=== PATIENT | male | born 1955 | race Hispanic/Latino ===

== ENCOUNTER → 2021-01-01 | Outpatient (CLI) | payer OTHER ==
[~2021-01-01] MED LIST: IOHEXOL 350 MG/ML 100ML INFUS..BTL IV ONE
== END | disposition home or self-care (01) ==
LOC: RAH 07:54
PROVIDERS: ATTEND Internal Medicine Gastroenterology
DX: Q53.20 Undescended testicle, unspecified, bilateral (principal); R63.4 Abnormal weight loss
CPT/HCPCS: 74178; Q9967

== ENCOUNTER 2022-06-19 20:07 | Emergency (ER) | payer OTHER ==
[~2022-06-19] VITALS: Ht 170.2 cm; Wt 71.2 kg
[2022-06-19 20:58] LABS: BASOPHILS % (AUTO) 0.3 % (0.0-5.0); EOSINOPHILS % (AUTO) 0.3 % (0.0-8.0); LYMPHOCYTES % (AUTO) 11.1 % (21.0-51.0); MEAN CORPUSCULAR HEMOGLOBIN 28.6 pg (27.0-33.0); MEAN CORPUSCULAR HGB CONC 34.2 g/dL (32.0-36.0); MEAN CORPUSCULAR VOLUME 83.5 fL (79-99); MONOCYTES % (AUTO) 6.1 % (3.0-13.0); NEUTROPHILS % (AUTO) 81.8 % (40.0-77.0); PLATELET COUNT (AUTO) 151 K/uL (130-400); RED BLOOD CELL COUNT(AUTO) 3.95 MIL/uL (4.50-6.20); RED CELL DISTRIBUTION WIDTH 12.1 % (11.0-15.5); WHITE BLOOD COUNT (AUTO) 7.5 K/uL (4.8-10.8)
[2022-06-19 21:03] LABS: APPEARANCE,URINE CLEAR (CLEAR); BILIRUBIN,URINE NEGATIVE (NEGATIVE); COLOR,URINE YELLOW (YELLOW); GLUCOSE, URINE (UA) NEGATIVE (NEGATIVE); KETONES,URINE NEGATIVE (NEGATIVE); LEUKOCYTE ESTERASE ,URINE NEGATIVE Leu/uL (NEGATIVE); NITRATE,URINE NEGATIVE (NEGATIVE); OCCULT BLOOD,URINE NEGATIVE (NEGATIVE); PH,URINE 5.5 (5.0-8.0); PROTEIN,URINE 10 mg/dL (NEGATIVE); UROBILINOGEN,URINE 0.2 mg/dL (0.2-1.0)
[2022-06-19 21:07] LABS: MUCUS,URINE RARE LPF (None Seen); RBC,URINE 0-1 /HPF (0-1); SQUAMOUS EPITHELIAL CELL,UR RARE /HPF (0-2); WBC,URINE 0-1 /HPF (0-1)
[2022-06-19 21:16] LABS: CREATININE 0.8 mg/dL (0.5-1.5); POTASSIUM 3.7 mmol/L (3.5-5.1)
[2022-06-19 21:21] LABS: ALBUMIN 4.3 g/dL (3.5-5.0); TOTAL PROTEIN, SERUM 7.8 g/dL (6.0-8.3)
[2022-06-19] MEDS ORDERED: IOHEXOL 350 MG/ML 100ML INFUS..BTL IV ONE (22:30)
[2022-06-20] MEDS ORDERED: HYDR25SU38 RC (01:05)
[2022-06-20 01:06] VITALS: BP 123/45
== END 2022-06-20 01:38 | disposition home or self-care (01) ==
LOC: EDH 20:07
DX: K64.9 Unspecified hemorrhoids (principal); F03.90 Unspecified dementia, unspecified severity, without behavioral disturbance, psychotic disturbance, mood disturbance, and anxiety
CPT/HCPCS: 99285; 74177; 82270; 82150; 82550; 80053; 83690; 85025; 81001; 36415; Q9967

== ENCOUNTER 2022-10-08 07:34 | Emergency (ER) | payer OTHER ==
[~2022-10-08] VITALS: Ht 170.2 cm; Wt 69.9 kg
[~2022-10-08 07:34] MED LIST changes: +HYDR25SU38 RC; -IOHEXOL 350 MG/ML 100ML INFUS..BTL IV ONE
[2022-10-08 08:30] LABS: BASOPHILS % (AUTO) 0.8 % (0.0-5.0); EOSINOPHILS % (AUTO) 2.1 % (0.0-8.0); HEMATOCRIT 34.6 % (42-54); LYMPHOCYTES % (AUTO) 36.1 % (21.0-51.0); MEAN CORPUSCULAR HEMOGLOBIN 28.8 pg (27.0-33.0); MEAN CORPUSCULAR HGB CONC 33.5 g/dL (32.0-36.0); MEAN CORPUSCULAR VOLUME 85.9 fL (79-99); MONOCYTES % (AUTO) 6.3 % (3.0-13.0); NEUTROPHILS % (AUTO) 54.2 % (40.0-77.0); NUCLEATED RED BLOOD CELLS 0.5 % (0.0-0.19); PLATELET COUNT (AUTO) 82 K/uL (130-400); RED BLOOD CELL COUNT(AUTO) 4.03 MIL/uL (4.50-6.20); RED CELL DISTRIBUTION WIDTH 12.1 % (11.0-15.5); WHITE BLOOD COUNT (AUTO) 3.8 K/uL (4.8-10.8)
[2022-10-08 08:45] LABS: APPEARANCE,URINE CLEAR (CLEAR); BILIRUBIN,URINE NEGATIVE (NEGATIVE); COLOR,URINE YELLOW (YELLOW); GLUCOSE, URINE (UA) NEGATIVE (NEGATIVE); KETONES,URINE NEGATIVE (NEGATIVE); LEUKOCYTE ESTERASE ,URINE NEGATIVE Leu/uL (NEGATIVE); NITRATE,URINE NEGATIVE (NEGATIVE); OCCULT BLOOD,URINE NEGATIVE (NEGATIVE); PROTEIN,URINE NEGATIVE (NEGATIVE); UROBILINOGEN,URINE 0.2 mg/dL (0.2-1.0)
[2022-10-08 09:05] LABS: ALBUMIN 4.5 g/dL (3.5-5.0); CREATININE 0.7 mg/dL (0.5-1.5); MAGNESIUM 1.9 mg/dL (1.80-2.40); POTASSIUM 3.9 mmol/L (3.5-5.1); TOTAL PROTEIN, SERUM 7.8 g/dL (6.0-8.3)
[2022-10-08] MEDS ORDERED: IOHEXOL 350 MG/ML 100ML INFUS..BTL IV ONE (10:18)
[2022-10-08 12:20] VITALS: BP 130/64
== END 2022-10-08 12:31 | disposition home or self-care (01) ==
LOC: EDH 07:36
DX: R41.0 Disorientation, unspecified (principal); R63.4 Abnormal weight loss
CPT/HCPCS: 99285; 70460; 83735; 80053; 85025; 81003; 36415; Q9967

== ENCOUNTER 2023-12-12 11:12 | Emergency (ER) | payer OTHER ==
[~2023-12-12] VITALS: Ht 170.2 cm; Wt 65.8 kg
[2023-12-12 11:35] VITALS: BP 119/65; PULSE 60; RESP 16
[2023-12-12 11:48] LABS: HEMATOCRIT 34.7 % (42-54); MEAN CORPUSCULAR HGB CONC 34.9 g/dL (32.0-36.0); MEAN CORPUSCULAR VOLUME 85.9 fL (79-99); PLATELET COUNT (AUTO) 150 K/uL (130-400); RED BLOOD CELL COUNT(AUTO) 4.04 MIL/uL (4.50-6.20); RED CELL DISTRIBUTION WIDTH 11.8 % (11.0-15.5); WHITE BLOOD COUNT (AUTO) 5.7 K/uL (4.8-10.8)
[2023-12-12 11:53] LABS: BASOPHILS # (AUTO) 0.02 K/uL (0.00-0.20); BASOPHILS % (AUTO) 0.4 % (0.0-5.0); EOSINOPHILS # (AUTO) 0.06 K/uL (0.00-0.70); EOSINOPHILS % (AUTO) 1.1 % (0.0-8.0); IMMATURE GRANULOCYTE ABSOLUTE 0.02 K/uL (0-1); LYMPHOCYTES # (AUTO) 1.6 K/uL (1.0-4.8); LYMPHOCYTES % (AUTO) 28.4 % (21.0-51.0); MONOCYTES # (AUTO) 0.3 K/uL (0.1-1.0); NEUTROPHILS # (AUTO) 3.5 K/uL (1.8-7.7); NEUTROPHILS % (AUTO) 63.7 % (40.0-77.0)
[2023-12-12 12:02] LABS: CREATININE 0.8 mg/dL (0.5-1.3); POTASSIUM 3.7 mmol/L (3.5-5.1)
[2023-12-12 12:05] LABS: APPEARANCE,URINE CLEAR (CLEAR); BILIRUBIN,URINE NEGATIVE (NEGATIVE); COLOR,URINE YELLOW (YELLOW); GLUCOSE, URINE (UA) NEGATIVE (NEGATIVE); KETONES,URINE NEGATIVE (NEGATIVE); LEUKOCYTE ESTERASE ,URINE NEGATIVE Leu/uL (NEGATIVE); NITRATE,URINE NEGATIVE (NEGATIVE); OCCULT BLOOD,URINE NEGATIVE (NEGATIVE); PH,URINE 5.5 (5.0-8.0); PROTEIN,URINE NEGATIVE (NEGATIVE); UROBILINOGEN,URINE 0.2 mg/dL (0.2-1.0)
[2023-12-12 12:09] LABS: ADD UA MICROSCOPIC NO
[2023-12-12 12:12] LABS: ALBUMIN 4.1 g/dL (3.5-5.0); BILIRUBIN,TOTAL 1.6 mg/dL (0.2-1.0); TOTAL PROTEIN, SERUM 7.4 g/dL (6.0-8.3)
== END 2023-12-12 12:53 | disposition home or self-care (01) ==
LOC: EDH 11:12
DX: D64.9 Anemia, unspecified (principal); R30.0 Dysuria; F03.90 Unspecified dementia, unspecified severity, without behavioral disturbance, psychotic disturbance, mood disturbance, and anxiety; Z98.890 Other specified postprocedural states
CPT/HCPCS: 36415; 80053; 81003; 85025

== ENCOUNTER 2024-11-14 12:57 | Observation (INO) | payer OTHER ==
[~2024-11-14] VITALS: Ht 170.2 cm; Wt 66.7 kg
--- NOTE | 2024-11-14 13:27 | ERN ---
ED Note History of Present Illness Stated Complaint: URINE INFECTION Chief Complaint: Abnormal Labs Time Seen by MD: 12:58 Dictation: 69-year-old male with a history of dementia presents to the ED with machine tool technician instructor for evaluation of urine infection. Credit Card Clerk reports foul smelling urine, but denies any fever, chest pain, shortness of breath or vomiting at this time. Allergies: Coded Allergies: No Known Drug Allergies (Unverified Allergy, Unknown, 06/19/22) Home Meds Active Scripts Hydrocortisone Acetate (Anusol-Hc) 25 Mg Supp.rect, 25 MG RC BID, #10 EA Prov:NANCIE INFANTE MD 06/20/22 Past Medical History Past Medical History: Dementia, Other Additional Past Medical Hx: LEFT BRAIN MASS FROM . Surgical History: None Family History: Negative Social History: Negative, Lives with family Review of System Dictation ROS obtained from machine tool technician instructor Constitutional: Negative for fever,chills, and weight loss Eyes: Negative for injury, pain,redness, and discharge ENT: Negative for injury,pain or swelling Cardiovascular: Negative for chest pain, palpitations, and edema Respiratory: Negative for shortness of breath, cough, and wheezing, Abdomen/GI: Negative for abdominal pain, nausea, vomiting, diarrhea, and constipation Back: Negative for injury and pain : Negative for injury, bleeding and discharge MS/Extremity: Negative for injury and deformity Skin: Negative for rash, and discoloration Initial Vital Sign VS Vital Signs Date Time Temp Pulse Resp B/P (MAP) Pulse Ox O2 Delivery O2 Flow Rate FiO2 11/14/24 13:29 98.4 70 18 116/59 98 Room Air 0 Physical Exam Dictation General: awake, alert, NAD Head/Face: Normocephalic, atraumatic Eyes: PERRL, EOMI, vision at baseline ENT: oral cavity clear, TMs clear, no signs of infection Neck: Trachea midline, supple, no nuchal rigidity Cardiovascular: RRR, normal S1/S2, No MRGs, no JVD Respiratory: CTAB, no respiratory distress, No rales or wheezes Abdomen: Soft, non-tender, non-distended, normal bowel sounds, no guarding or rebound. Skin: Warm, dry, normal turgor, no rash MS/Extremity: Pulses equal, no cyanosis, neurovascular intact, FROM Results (Laboratory/Radiology) Laboratory/Radiology Laboratory Tests Test 4/21/25 14:38 White Blood Count 8.8 K/uL (4.8-10.8) Red Blood Count 4.02 MIL/uL (4.50-6.20) L Hemoglobin 11.9 g/dL (14.0-18.0) L Hematocrit 35.6 % (42-54) L Mean Corpuscular Volume 88.6 fL (79-99) Mean Corpuscular Hemoglobin 29.6 pg (27.0-33.0) Mean Corpuscular Hemoglobin Concent 33.4 g/dL (32.0-36.0) Red Cell Distribution Width 12.1 % (11.0-15.5) Platelet Count 143 K/uL (130-400) Mean Platelet Volume 10.1 fL (7.5-10.5) Immature Granulocyte % (Auto) 0.3 % (0-1) Neutrophils (%) (Auto) 89.6 % (40.0-77.0) H Lymphocytes (%) (Auto) 5.7 % (21.0-51.0) L Monocytes (%) (Auto) 4.1 % (3.0-13.0) Eosinophils (%) (Auto) 0.1 % (0.0-8.0) Basophils (%) (Auto) 0.2 % (0.0-5.0) Neutrophils # (Auto) 7.9 K/uL (1.8-7.7) H Lymphocytes # (Auto) 0.5 K/uL (1.0-4.8) L Monocytes # (Auto) 0.4 K/uL (0.1-1.0) Eosinophils # (Auto) 0.01 K/uL (0.00-0.70) Basophils # (Auto) 0.02 K/uL (0.00-0.20) Absolute Immature Granulocyte (auto 0.03 K/uL (0-1) Nucleated Red Blood Cells 0.0 % (0.0-0.19) White Cell Morphology Comment See comments Sodium Level 140 mmol/L (136-145) Potassium Level 4.1 mmol/L (3.5-5.1) Chloride Level 103 mmol/L (101-111) Carbon Dioxide Level 29 mmol/L (21-32) Blood Urea Nitrogen 19 mg/dL (7-18) H Creatinine 0.7 mg/dL (0.5-1.3) Glomerular Filtration Rate Calc 99 mL/min (>90) Random Glucose 116 mg/dL (70-105) H Lactic Acid Level 1.1 mmol/L (0.8-2.5) Total Calcium 9.1 mg/dL (8.5-10.1) Total Bilirubin 1.0 mg/dL (0.2-1.0) Direct Bilirubin 0.2 mg/dL (0.0-0.3) Aspartate Amino Transf (AST/SGOT) 22 U/L (10-37) Alanine Aminotransferase (ALT/SGPT) 27 U/L (12-78) Alkaline Phosphatase 95 U/L (50-136) Troponin I High Sensitivity 4 ng/L (4-75) Total Protein 7.8 g/dL (6.0-8.3) Albumin 4.3 g/dL (3.5-5.0) Labs Reviewed?: Yes ED Course ED Course Orders Procedure Category Date Status Time 12 Lead Ekg Tracing- EKG 11/14/24 Logged Technical 13:11 Basic Metabolic Panel LAB 11/14/24 Complete 13:11 Blood Cult CANDI 11/14/24 In Process 13:11 Cbc With Differential LAB 11/14/24 Complete 13:11 Hepatic Function Panel LAB 11/14/24 Complete 13:11 Lactic Acid LAB 11/14/24 Complete 13:11 Troponin I High LAB 11/14/24 Complete Sensitivity 13:11 Urinalysis Profile LAB 11/14/24 Logged 13:11 Ceftriaxone 2gm Vial PHA 11/14/24 In Process (Rocephin 2gm Inj) 18:30 0.9%Nacl 1000ml (Ns PHA 11/14/24 In Process 1000ml) 18:30 Current Medications Medications (Trade) Dose Ordered Sig/Seven Route PRN Reason Start Time Stop Time Status Last Admin Dose Admin Ceftriaxone Sodium (Rocephin 2gm Inj) 2 gm ONCE IVPB 11/14/24 18:30 11/14/24 22:30 Sodium Chloride 1,000 ml @ 0 mls/hr ONCE IV 11/14/24 18:30 11/15/24 18:30 Vital Signs Date Time Temp Pulse Resp B/P (MAP) Pulse Ox O2 Delivery O2 Flow Rate FiO2 11/14/24 13:29 98.4 70 18 116/59 98 Room Air 0 Medical Decision Making MDM MDM: Differential diagnosis: UTI 1899- Patient care is being transferred at shift change Risk of complication and/or morbidity or mortality of patient management: None Medications-Per medication reconciliation Need for hospitalization: Patient does not meet criteria for hospitalization. Need for emergency major/minor surgery: No There are no social concerns with this patient. I independently interpreted the test that were performed, results were reviewed by me and considered findings on radiology if ordered. Medical management and examination interpretation discussions were had by me with other qualified healthcare professionals as indicated for the patient's care. DX & DISP Disposition: Inpatient Departure Impression: Primary Impression: Dysuria Additional Impressions: Confusion and disorientation, Acute UTI Condition: Stable Referrals: STEFF MINOR DO (PCP) RUI MELO MD Nov 14, 2024 13:27
[2024-11-14 14:50] LABS: BASOPHILS # (AUTO) 0.02 K/uL (0.00-0.20); BASOPHILS % (AUTO) 0.2 % (0.0-5.0); EOSINOPHILS # (AUTO) 0.01 K/uL (0.00-0.70); EOSINOPHILS % (AUTO) 0.1 % (0.0-8.0); HEMATOCRIT 35.6 % (42-54); IMMATURE GRANULOCYTE ABSOLUTE 0.03 K/uL (0-1); LYMPHOCYTES # (AUTO) 0.5 K/uL (1.0-4.8); LYMPHOCYTES % (AUTO) 5.7 % (21.0-51.0); MEAN CORPUSCULAR HEMOGLOBIN 29.6 pg (27.0-33.0); MEAN CORPUSCULAR HGB CONC 33.4 g/dL (32.0-36.0); MEAN CORPUSCULAR VOLUME 88.6 fL (79-99); MONOCYTES # (AUTO) 0.4 K/uL (0.1-1.0); MONOCYTES % (AUTO) 4.1 % (3.0-13.0); NEUTROPHILS # (AUTO) 7.9 K/uL (1.8-7.7); NEUTROPHILS % (AUTO) 89.6 % (40.0-77.0); PLATELET COUNT (AUTO) 143 K/uL (130-400); RED BLOOD CELL COUNT(AUTO) 4.02 MIL/uL (4.50-6.20); RED CELL DISTRIBUTION WIDTH 12.1 % (11.0-15.5); WHITE BLOOD COUNT (AUTO) 8.8 K/uL (4.8-10.8)
[2024-11-14 15:01] LABS: CREATININE 0.7 mg/dL (0.5-1.3); POTASSIUM 4.1 mmol/L (3.5-5.1)
[2024-11-14 15:05] LABS: ALBUMIN 4.3 g/dL (3.5-5.0); BILIRUBIN,DIRECT 0.2 mg/dL (0.0-0.3); TOTAL PROTEIN, SERUM 7.8 g/dL (6.0-8.3)
[2024-11-14] MEDS: 0.9%NACL 1000ML 1,000 ML IV SCH (19:44)
[2024-11-14] MEDS: CEFTRIAXONE 2GM VIAL IVPB SCH (19:44)
--- NOTE | 2024-11-14 23:06 | NUR ---
REPORTS PATIENT DOES NOT TAKE ANY PRESCRIBED MEDICATIONS
[2024-11-14] MEDS: MELATONIN 5 MG TABLET PO ONE (23:25)
--- NOTE | 2024-11-14 23:35 | HP ---
[facility] HISTORY AND PHYSICAL Date of Service: Nov 14, 2024 Time of Service: 23:35 PCP: Salvatore Bland HISTORY OF PRESENT ILLNESS: This is a 69-year-old male with history of dementia who presents to the ED for complaints of foul odor urine and decided to bring the patient to the ED for evaluation. Seen and examined patient in the ER awake ,alert and responsive.Patient appears comfortable. No reported fever, chills, chest pain, cough , palpitation and shortness of breaths. Latest vital signs temperature 9 8.4 heart rate 70 blood pressure 116/59 saturation 98% on room air. Labs: Hemoglobin 11, hematocrit 35 platelet count 143. Chemistries unremarkable. While in the ER patient received Rocephin 2 g IV 1 L NS bolus and melatonin 5 mg p.o. ER called and recommended to admit the patient REVIEW OF SYSTEMS CONSTITUTIONAL: Denies fevers, chills, or night sweats. No unintentional weight loss reported. NEUROLOGICAL: Denies headache, amaurosis fugax, motor weakness, sensory deficit, vertigo/spinning sensation, gait abnormalities, or tremors. ENT: No hearing loss, otalgia, otorrhea, rhinitis, rhinorrhea, hoarseness, or sore throat. CARDIOVASCULAR: Denies any exertional angina, dyspnea on exertion, orthopnea, paroxysmal nocturnal dyspnea, palpitations, life-threatening arrhythmias, claudication. PULMONARY: Denies any shortness of breath, cough, phlegm/sputum, hemoptysis, pleuritic chest pain. SLEEP: Denies morning headaches, daytime somnolence or napping. Denies difficul ty falling asleep, staying asleep, waking from sleep. Denies knowledge of snoring. GASTROINTESTINAL: Denies any type of dysphagia to either liquids or solids. Denies nausea, vomiting, pyrosis, early satiety, abdominal pain, diarrhea, constipation, or changes in stool consistency or caliber. Denies coffee-ground emesis, hematemesis, hematochezia, or melanotic stools. GENITOURINARY: Denies frequency, urgency, nocturia, hematuria or incontinence (Storage/Irritative symptoms.) Low urinary stream, straining to void, urinary intermittency or hesitancy, splitting of the voiding stream, terminal dribbling. ENDOCRINOLOGIC: Denies polyuria, polydipsia, polyphagia or heat/cold intole rances. HEMATOLOGIC: Denies thrombophilia/previous clots, or coagulopathy/bleeding disorders. ONCOLOGIC: Denies personal history of malignancy. DERMATOLOGIC: Denies rashes or pruritus. PSYCHIATRIC: Denies any suicidal or homicidal ideation. Denies hallucinations. PAST MEDICAL HISTORY: [ Dementia] PAST SURGICAL HISTORY: [ Family denies] PAST SOCIAL HISTORY: [ Patient stays with Ludim . Patient does not drink alcohol, smoke cigarette and use recreational drugs as per ] FAMILY HISTORY: [ Noncontributory] Coded Allergies: No Known Drug Allergies (Unverified Allergy, Unknown, 06/19/22) PHYSICAL EXAM GENERAL APPEARANCE: The patient is awake, alert, and oriented, in no acute cardiopulmonary distress. NEUROLOGICAL: Cranial nerves II-XII grossly intact. Motor is 5/5 in bilateral upper and lower extremities proximal to distal. No sensory deficits. HEENT: Face is symmetric. Pupils are equal and reactive. Extraocular movements are intact. NECK: Supple. No JVD. No thyromegaly. No submental, submandibular, pre- /postauricular, occipital or supraclavicular lymphadenopathy. CHEST: Normal chest expansion. No Telemetry. LUNGS: Absence of any rales, rhonchi or any wheezing. CARDIOVASCULAR: Regular. S1 and S2 normal. No appreciable rubs, murmurs or gallops. ABDOMEN: Soft, nontender, and nondistended. There is no rebound, voluntary guarding, or rigidity. : Deferred. No Stevens. EXTREMITIES: Non-edematous and not cyanotic. No clubbing. Good capillary refill. SKIN: No skin breakdown. Vital Sign (Last 24 Hours) 11/14/24 13:29 Temp 98.4 Pulse 70 Resp 18 B/P (MAP) 116/59 Pulse Ox 98 O2 Delivery Room Air O2 Flow Rate 0 LABS: Laboratory: Test 11/14/24 14:38 Range/Units White Blood Count 8.8 4.8-10.8 K/uL Red Blood Count 4.02 L 4.50-6.20 MIL/uL Hemoglobin 11.9 L 14.0-18.0 g/dL Hematocrit 35.6 L 42-54 % Mean Corpuscular Volume 88.6 79-99 fL Mean Corpuscular Hemoglobin 29.6 27.0-33.0 pg Mean Corpuscular Hemoglobin Concent 33.4 32.0-36.0 g/dL Red Cell Distribution Width 12.1 11.0-15.5 % Platelet Count 143 130-400 K/uL Mean Platelet Volume 10.1 7.5-10.5 fL Immature Granulocyte % (Auto) 0.3 0-1 % Neutrophils (%) (Auto) 89.6 H 40.0-77.0 % Lymphocytes (%) (Auto) 5.7 L 21.0-51.0 % Monocytes (%) (Auto) 4.1 3.0-13.0 % Eosinophils (%) (Auto) 0.1 0.0-8.0 % Basophils (%) (Auto) 0.2 0.0-5.0 % Neutrophils # (Auto) 7.9 H 1.8-7.7 K/uL Lymphocytes # (Auto) 0.5 L 1.0-4.8 K/uL Monocytes # (Auto) 0.4 0.1-1.0 K/uL Eosinophils # (Auto) 0.01 0.00-0.70 K/uL Basophils # (Auto) 0.02 0.00-0.20 K/uL Absolute Immature Granulocyte (auto 0.03 0-1 K/uL Nucleated Red Blood Cells 0.0 0.0-0.19 % White Cell Morphology Comment See comments Sodium Level 140 136-145 mmol/L Potassium Level 4.1 3.5-5.1 mmol/L Chloride Level 103 101-111 mmol/L Carbon Dioxide Level 29 21-32 mmol/L Blood Urea Nitrogen 19 H 7-18 mg/dL Creatinine 0.7 0.5-1.3 mg/dL Glomerular Filtration Rate Calc 99 >90 mL/min Random Glucose 116 H 70-105 mg/dL Lactic Acid Level 1.1 0.8-2.5 mmol/L Total Calcium 9.1 8.5-10.1 mg/dL Total Bilirubin 1.0 0.2-1.0 mg/dL Direct Bilirubin 0.2 0.0-0.3 mg/dL Aspartate Amino Transf (AST/SGOT) 22 10-37 U/L Alanine Aminotransferase (ALT/SGPT) 27 12-78 U/L Alkaline Phosphatase 95 50-136 U/L Troponin I High Sensitivity 4 4-75 ng/L Total Protein 7.8 6.0-8.3 g/dL Albumin 4.3 3.5-5.0 g/dL Current Medications Medications (Trade) Dose Ordered Sig/Seven Route PRN Reason Start Time Stop Time Status Last Admin Dose Admin Ceftriaxone Sodium (Rocephin 2gm Inj) 2 gm ONCE IVPB 11/14/24 18:30 11/14/24 22:30 DC 11/14/24 19:44 2 GM Sodium Chloride 1,000 ml @ 0 mls/hr ONCE IV 11/14/24 18:30 11/15/24 18:30 11/14/24 19:44 1,000 MLS/HR DIAGNOSTICS / RADIOLOGY: [ ] ASSESSMENT: Suspected urinary tract infection POA Normocytic normochromic anemia POA Dementia POA PLAN: We will admit patient in medical floor We will start on heart healthy diet We will start on famotidine 20 mg p.o. b.i.d. for GI prophylaxis We will start on Rocephin 1 g IV daily for empiric coverage We will replace electrolytes as needed per protocol We will add prn medication for fever,pain,cough, nausea and vomiting We will reconcile home meds once medlist available Follow up urinalysis and blood culture result We will request labs in am Further orders to follow depending on above results Case discussed with attending physician and came up with above treatment and plan of care. ADVANCED CARE PLANNING 1. Which of the following were discussed? Hospice Care - No Therapeutic options - Yes Advance Directives - No Other discussions - 2. Discussed with who? Patient and Dawn 3. Voluntary nature of this service was explained to the patient? Yes 4. Amount of time spent - __20 5. Reviewed by Physician? (if this service was performed by NPP) Yes Patient seen and examined by me. Agree with note by DIRECTOR OF BROADCAST SEE ADDITIONAL ORDERS PER CHART DISCUSSED WITH NURSING STAFF SURESH HART DIRECTOR OF LABOR AND DELIVERY Nov 14, 2024 23:35
[2024-11-15] VITALS (8 sets, daily range): BP systolic 120–152; BP diastolic 52–82; PULSE 54–79; RESP 16–19; TEMP 97.8–98.2; O2SAT 100
[2024-11-15] MEDS ORDERED: ondanSETRON 4MG INJ IV PRN
[2024-11-15 07:15] LABS: BASOPHILS # (AUTO) 0.03 K/uL (0.00-0.20); BASOPHILS % (AUTO) 0.6 % (0.0-5.0); EOSINOPHILS # (AUTO) 0.11 K/uL (0.00-0.70); EOSINOPHILS % (AUTO) 2.1 % (0.0-8.0); HEMATOCRIT 31.4 % (42-54); IMMATURE GRANULOCYTE ABSOLUTE 0.02 K/uL (0-1); LYMPHOCYTES # (AUTO) 1.1 K/uL (1.0-4.8); LYMPHOCYTES % (AUTO) 21.5 % (21.0-51.0); MEAN CORPUSCULAR HEMOGLOBIN 29.5 pg (27.0-33.0); MEAN CORPUSCULAR HGB CONC 33.8 g/dL (32.0-36.0); MEAN CORPUSCULAR VOLUME 87.5 fL (79-99); MONOCYTES # (AUTO) 0.4 K/uL (0.1-1.0); NEUTROPHILS # (AUTO) 3.6 K/uL (1.8-7.7); NEUTROPHILS % (AUTO) 68.4 % (40.0-77.0); PLATELET COUNT (AUTO) 111 K/uL (130-400); RED BLOOD CELL COUNT(AUTO) 3.59 MIL/uL (4.50-6.20); RED CELL DISTRIBUTION WIDTH 12.1 % (11.0-15.5); WHITE BLOOD COUNT (AUTO) 5.3 K/uL (4.8-10.8)
[2024-11-15 07:28] LABS: ALBUMIN 3.6 g/dL (3.5-5.0); BILIRUBIN,TOTAL 0.9 mg/dL (0.2-1.0); CREATININE 0.6 mg/dL (0.5-1.3); POTASSIUM 4.1 mmol/L (3.5-5.1); TOTAL PROTEIN, SERUM 6.7 g/dL (6.0-8.3)
[2024-11-15] MEDS: FAMOTIDINE 20MG TAB PO SCH (09:39)
--- NOTE | 2024-11-15 11:06 | NUR ---
DCP: home Pt has a diagnosis of dementia and lives with his Debbie Mitchell. Sps assists pt in completing all ADLs. SPS did not report any insecurities with food, correction, and/or utilities. Sps states that she woudl use "all the help" with pt. SPS is already connected with [facility]. SW provided sps with [facility] [phone] for potential assist. Pt does not have DME at home. PCP is Dr. Chase and uses [facility] for RX needs. SPS requested that any RX be in liquid form since it is easier to adminster to pt. At [place] pt will go home and will assist. Addendum: 11/15/24 at 1115 by ALEXANDER HIDALGO SS Amended: Links added.
--- NOTE | 2024-11-15 12:43 | PN ---
[facility] PROGRESS NOTE Date of Service: Nov 15, 2024 Time of Service: 12:39 SUBJECTIVE: [Patient was admitted overnight due to complaining of foul odor urine. Apparently patient has history of dementia, pleasantly confused. During rounds, patient's [id number]-fun is at bedside. We are unable to collect for urine culture hence I recommended to do a straight catheter for which [id number] agreed. So far patient has not had any fevers, WBC within normal limits. Patient is currently on ceftriaxone1 g Q 24 hours. Patient's family denies home medications. For now we will continue with current management. REVIEW OF SYSTEMS CONSTITUTIONAL: Denies fevers, chills, or night sweats. No unintentional weight loss reported. NEUROLOGICAL: Denies headache, amaurosis fugax, motor weakness, sensory deficit, vertigo/spinning sensation, gait abnormalities, or tremors. ENT: No hearing loss, otalgia, otorrhea, rhinitis, rhinorrhea, hoarseness, or sore throat. CARDIOVASCULAR: Denies any exertional angina, dyspnea on exertion, orthopnea, paroxysmal nocturnal dyspnea, palpitations, life-threatening arrhythmias, claudication. PULMONARY: Denies any shortness of breath, cough, phlegm/sputum, hemoptysis, pleuritic chest pain. SLEEP: Denies morning headaches, daytime somnolence or napping. Denies difficulty falling asleep, staying asleep, waking from sleep. Denies knowledge of snoring. GASTROINTESTINAL: Denies any type of dysphagia to either liquids or solids. D enies nausea, vomiting, pyrosis, early satiety, abdominal pain, diarrhea, constipation, or changes in stool consistency or caliber. Denies coffee-ground emesis, hematemesis, hematochezia, or melanotic stools. GENITOURINARY: Denies frequency, urgency, nocturia, hematuria or incontinence (Storage/Irritative symptoms.) Low urinary stream, straining to void, urinary intermittency or hesitancy, splitting of the voiding stream, terminal dribbling. ENDOCRINOLOGIC: Denies polyuria, polydipsia, polyphagia or heat/cold intolerances. HEMATOLOGIC: Denies thrombophilia/previous clots, or coagulopathy/bleeding disorders. ONCOLOGIC: Denies personal history of malignancy. DERMATOLOGIC: Denies rashes or pruritus. PSYCHIATRIC: Denies any suicidal or homicidal ideation. Denies hallucinations. PHYSICAL EXAM GENERAL APPEARANCE: The patient is awake, alert, and oriented, in no acute cardiopulmonary distress. NEUROLOGICAL: Cranial nerves II-XII grossly intact. Motor is 5/5 in bilateral upper and lower extremities proximal to distal. No sensory deficits. HEENT: Face is symmetric. Pupils are equal and reactive. Extraocular movements are intact. NECK: Supple. No JVD. No thyromegaly. No submental, submandibular, pre- /postauricular, occipital or supraclavicular lymphadenopathy. CHEST: Normal chest expansion. No Telemetry. LUNGS: Absence of any rales, rhonchi or any wheezing. CARDIOVASCULAR: Regular. S1 and S2 normal. No appreciable rubs, murmurs or gallops. ABDOMEN: Soft, nontender, and nondistended. There is no rebound, voluntary guarding, or rigidity. : Deferred. No Stevens. EXTREMITIES: Non-edematous and not cyanotic. No clubbing. Good capillary refill. SKIN: No skin breakdown. Vital Signs (last 8hr) Date Time Temp Pulse Resp B/P (MAP) Pulse Ox O2 Delivery O2 Flow Rate FiO2 11/15/24 08:15 98.1 68 16 120/75 100 Room Air 11/15/24 05:00 98.1 54 18 135/58 100 Room Air 21 LABS: Laboratory: Test 11/15/24 07:00 11/14/24 14:38 Range/Units White Blood Count 5.3 # 4.8-10.8 K/uL Red Blood Count 3.59 L 4.50-6.20 MIL/uL Hemoglobin 10.6 L 14.0-18.0 g/dL Hematocrit 31.4 L 42-54 % Mean Corpuscular Volume 87.5 79-99 fL Mean Corpuscular Hemoglobin 29.5 27.0-33.0 pg Mean Corpuscular Hemoglobin Concent 33.8 32.0-36.0 g/dL Red Cell Distribution Width 12.1 11.0-15.5 % Platelet Count 111 L 130-400 K/uL Mean Platelet Volume 9.7 7.5-10.5 fL Immature Granulocyte % (Auto) 0.4 0-1 % Neutrophils (%) (Auto) 68.4 40.0-77.0 % Lymphocytes (%) (Auto) 21.5 21.0-51.0 % Monocytes (%) (Auto) 7.0 3.0-13.0 % Eosinophils (%) (Auto) 2.1 0.0-8.0 % Basophils (%) (Auto) 0.6 0.0-5.0 % Neutrophils # (Auto) 3.6 1.8-7.7 K/uL Lymphocytes # (Auto) 1.1 1.0-4.8 K/uL Monocytes # (Auto) 0.4 0.1-1.0 K/uL Eosinophils # (Auto) 0.11 0.00-0.70 K/uL Basophils # (Auto) 0.03 0.00-0.20 K/uL Absolute Immature Granulocyte (auto 0.02 0-1 K/uL Nucleated Red Blood Cells 0.0 0.0-0.19 % Sodium Level 143 136-145 mmol/L Potassium Level 4.1 3.5-5.1 mmol/L Chloride Level 107 101-111 mmol/L Carbon Dioxide Level 30 21-32 mmol/L Blood Urea Nitrogen 9 7-18 mg/dL Creatinine 0.6 0.5-1.3 mg/dL Glomerular Filtration Rate Calc 103 >90 mL/min Random Glucose 100 70-105 mg/dL Total Calcium 8.9 8.5-10.1 mg/dL Total Bilirubin 0.9 0.2-1.0 mg/dL Aspartate Amino Transf (AST/SGOT) 22 10-37 U/L Alanine Aminotransferase (ALT/SGPT) 26 12-78 U/L Alkaline Phosphatase 76 50-136 U/L Total Protein 6.7 6.0-8.3 g/dL Albumin 3.6 3.5-5.0 g/dL White Cell Morphology Comment See comments Lactic Acid Level 1.1 0.8-2.5 mmol/L Direct Bilirubin 0.2 0.0-0.3 mg/dL Troponin I High Sensitivity 4 4-75 ng/L Current Medications Medications (Trade) Dose Ordered Sig/Seven Route PRN Reason Start Time Stop Time Status Last Admin Dose Admin Ceftriaxone Sodium (ROCEphine 1G INJ) 1 gm Q24H IV 11/15/24 18:00 11/25/24 17:59 Ceftriaxone Sodium (Rocephin 2gm Inj) 2 gm ONCE IVPB 11/14/24 18:30 11/14/24 22:30 DC 11/14/24 19:44 2 GM Famotidine (Pepcid 20mg Tab) 20 mg BID PO 11/15/24 09:00 12/15/24 08:59 11/15/24 09:39 20 MG Ondansetron HCl (zoFRAN 4MG INJ) 4 mg Q6H PRN IV NAUSEA/VOMITING 11/15/24 00:00 12/15/24 00:00 Sodium Chloride 1,000 ml @ 0 mls/hr ONCE IV 11/14/24 18:30 11/15/24 18:30 11/14/24 19:44 1,000 MLS/HR DIAGNOSTICS / RADIOLOGY: [ ] ASSESSMENT: Metabolic encephalopathy, 2/2 uti, POA Suspected urinary tract infection, RULED IN POA Normocytic normochromic anemia POA Dementia POA PLAN: Continue admission to patient in medical floor Continue on heart healthy diet Continue on famotidine 20 mg p.o. b.i.d. for GI prophylaxis Continue on Rocephin 1 g IV daily for empiric coverage We will continue to replace electrolytes as needed per protocol We will continue with prn medication for fever,pain,cough, nausea and vomiting As per primary nurse no home meds We will straight cath patient for urinalysis and urine culture GI and DVT prophylaxis We will request labs in am Further orders to follow depending on above results Case discussed with attending physician and came up with above treatment and plan of care. ATTESTATION BY PHYSICIAN I have seen and examined the patient. I reviewed the documentation, medical decision making, and treatment plan as noted by the mid-level provider above. I agree with the findings and plan of care. Joanna Paz MD, [facility] [place] Nov 15, 2024 12:43
[2024-11-15 13:00] LABS: APPEARANCE,URINE CLEAR (CLEAR); BILIRUBIN,URINE NEGATIVE (NEGATIVE); COLOR,URINE COLORLESS (YELLOW); GLUCOSE, URINE (UA) NEGATIVE (NEGATIVE); KETONES,URINE NEGATIVE (NEGATIVE); LEUKOCYTE ESTERASE ,URINE 25 Leu/uL (NEGATIVE); NITRATE,URINE NEGATIVE (NEGATIVE); OCCULT BLOOD,URINE NEGATIVE (NEGATIVE); PROTEIN,URINE NEGATIVE (NEGATIVE); UROBILINOGEN,URINE 0.2 mg/dL (0.2-1.0)
[2024-11-15] MEDS ORDERED: MAGNESIUM 2GM PREMIX 50ML 50 ML IV PRN (13:00)
[2024-11-15] MEDS ORDERED: PoTASSium chloRIDE 20MEQ/100ML 100 ML IV PRN (13:00)
[2024-11-15] MEDS ORDERED: PoTASSium chloRIDE 20MEQ ER 20 MEQ ERTAB PO PRN (13:00)
[2024-11-15] MEDS ORDERED: PoTASSium chl 10% ELIXIR 20MEQ 20 MEQ/15 ML UDCUP PO PRN (13:00)
[2024-11-15] MEDS ORDERED: acetaMINOPHEN 325 MG TAB PO PRN ×2 (13:00)
[2024-11-15 13:02] LABS: ADD UA MICROSCOPIC YES
[2024-11-15 13:20] LABS: BACTERIA,URINE RARE /HPF (None Seen)
--- NOTE | 2024-11-15 16:04 | NUR ---
Nutritional Note: Recommend: -Continue heart healthy easy to chew diet -Encourage small frequent meals -Ensure max w/ trays -if wt loss continues or PO intake <50% of meals taken for >3days consider nutritional support if clinically appropriate. - Electrolyte replacements per protocol -Monitor feeding tolerance, %, wt, and labs -If No BM >3days consider bowel stimulant. -Schedule outpatient RD f/u for long-term nutrition care. - Notify RD if additional nutrition concerns arise. -Nephrovite MVI combination of B vitamins may be used to treat or prevent vitamin deficiency due to poor diet. -Magic Cup 4oz w/ PM tray: Provides 9gm pro/ 290kcal and 20 vitamins and minerals. [place] to serve with meals as a means of adding calories and protein for unintended weight loss. -ProStat BID (30 ml) GADIEL SEE RD Nutritional Assessment for additional assessment information. Addendum: 11/15/24 at [address] Amended: Links added.
[2024-11-15] MEDS: cefTRIAXone 1G VIAL IV SCH (17:48)
[2024-11-16 04:08] VITALS: BP 142/68; PULSE 55; RESP 17; TEMP 98.1
[2024-11-16 05:03] LABS: HEMATOCRIT 32.5 % (42-54); MEAN CORPUSCULAR HEMOGLOBIN 29.8 pg (27.0-33.0); MEAN CORPUSCULAR HGB CONC 34.2 g/dL (32.0-36.0); MEAN CORPUSCULAR VOLUME 87.1 fL (79-99); RED BLOOD CELL COUNT(AUTO) 3.73 MIL/uL (4.50-6.20); RED CELL DISTRIBUTION WIDTH 12.2 % (11.0-15.5); WHITE BLOOD COUNT (AUTO) 5.2 K/uL (4.8-10.8)
[2024-11-16 05:17] LABS: CREATININE 0.8 mg/dL (0.5-1.3); MAGNESIUM 2.1 mg/dL (1.80-2.40); POTASSIUM 4.1 mmol/L (3.5-5.1)
[2024-11-16 08:00] VITALS: O2SAT 99
[2024-11-16 08:11] VITALS: BP 129/66; PULSE 59; RESP 18; TEMP 98
[2024-11-16] MEDS ORDERED: CEPH500B PO (09:43)
--- NOTE | 2024-11-16 10:50 | NUR ---
PATIENT IS DISCHARGED. IV REMOVED WITH CATHETER INTACT. EDUCATED FAMILY MEMBER ON AFTERCARE, WELL NEW MEDICATION TO START. PATIENT IS WAITING FOR TO ARRIVE
--- NOTE | 2024-11-16 17:42 | DS ---
Discharge Summary Hospital Course Summary: This is a 69-year-old male with history of dementia who presents to the ED for complaints of foul odor urine and decided to bring the patient to the ED for evaluation. Seen and examined patient in the ER awake ,alert and responsive. Patient appeared comfortable. No reported fever, chills, chest pain , cough , palpitation and shortness of breaths. In the ED, his vital signs- temperature 98.4 heart rate 70 blood pressure 116/59 saturation 98% on room air. Initial Labs: Hemoglobin 11, hematocrit 35 platelet count 143. Chemistries unremarkable. While in the ER patient received Rocephin 2 g IV 1 L NS bolus and melatonin 5 mg p.o. ER called and recommended to admit the patient. While patient was admitted, urinalysis was collected which showed leuko esterase of 25 Sudeep/uL. He received IV antibiotics with Rocephin1 g. Patient's urine culture did not have have growth in 24-48 hours. Blood cultures no growth for48 hours. He remained afebrile. Labs has been within normal limits. I discussed the plan with the patient's [id number] who was at bedside regarding discharging patient, we verbalized understanding and is in agreement with the plan. Patient has been bed-bound with dementia. Advised to follow up with PCP in two days. Assessment/Plan: Discharge diagnosis Metabolic encephalopathy, 2/2 uti, POA Suspected urinary tract infection, RULED IN POA Normocytic normochromic anemia POA Dementia POA Admitting diagnosis Suspected urinary tract infection POA Normocytic normochromic anemia POA Dementia POA Discharge Instructions: Patient follow up with PCP in 2-3 days Home Medications: Active Scripts Cephalexin Monohydrate (Keflex) 500 Mg Cap, 1 CAP PO TID for 5 Days, #15 CAP 0 Refills Prov:SIRENA GOINS 11/16/24 Discontinued Scripts Hydrocortisone Acetate (Anusol-Hc) 25 Mg Supp.rect, 25 MG RC BID, #10 EA Prov:NANCIE INFANTE MD 06/20/22 New Medications: Cephalexin Monohydrate (Keflex) 500 Mg Cap 1 CAP PO TID for 5 Days, #15 CAP 0 Refills Time spent arranging discharge: 31-60 minutes ATTESTATION BY PHYSICIAN I have seen and examined the patient. I reviewed the documentation, medical decision making, and treatment plan as noted by the mid-level provider above. I agree with the findings and plan of care. Joanna Paz MD, [facility] Nov 16, 2024 17:42
== END 2024-11-16 11:55 | disposition home or self-care (01) ==
LOC: EDH 12:57 → INTOOBSV 23:36 → EDHIP 23:36 → 4AH 11-15 00:17
PROVIDERS: ADMIT Internal Medicine; ATTEND Internal Medicine
DX: G93.41 Metabolic encephalopathy (principal); F03.90 Unspecified dementia, unspecified severity, without behavioral disturbance, psychotic disturbance, mood disturbance, and anxiety; D64.9 Anemia, unspecified; N39.0 Urinary tract infection, site not specified; R41.0 Disorientation, unspecified; R30.0 Dysuria; Z74.01 Bed confinement status; Z79.899 Other long term (current) drug therapy
CPT/HCPCS: 99284; 96365; 96376; 80076; 84484; 80048 ×2; 85025 ×2; 87040 ×2; 83605; 36415 ×3; 80053; 87086; 81001; 83735; 85027; G0378; J7030; J0696 ×2; 99285